=== PATIENT | female | born 1940 | race Caucasian/White ===

== ENCOUNTER 2018-02-15 14:41 | Inpatient (IN) | payer OTHER ==
[~2018-02-15] VITALS: Ht 152.4 cm; Wt 131.5 kg
--- NOTE | ~2018-02-15 | EKG ---
[address] [address] ELECTROCARDIOGRAM REPORT Name: NEEMA THOMAS Room #: 457-P ADM IN M.R.#: [id number] Admission: 02/15/18 Attend Phys: Channing Ramesh MD Discharge: Date of : 40 Report #: [id number] THIS REPORT FOR: //name// [facility] ED Test Date: 2018-02-15 Test Time: 15:01:27 Pat Name: NEEMA THOMAS Department: Room: [facility] Gender: F [employer]: as : 1940 Requested By: Delmy Day Order Number: [id number] MD: King Del Toro Measurements Intervals [place] Rate: 97 P: 27 NC: 165 QRS: 17 QRSD: 96 T: 55 QT: 348 QTc: 442 Interpretive Statements Sinus rhythm No previous ECG available for comparison Electronically Signed On 02-16-2018 23:35:45 [facility] OPERATOR by King Del Toro [email or web address] <ELECTRONICALLY SIGNED> By: King Del Toro MD 02/16/18 [id number] 1501 1501 King Del Toro MD /CASEY
[2018-02-15 14:41] VITALS: BP 147/54
[2018-02-15 15:00] LABS: ABSOLUTE NEUTROPHILS 9.5 thou/uL (1.4-8.2); BASOPHILS 0.2 % (0.0-2.0); EOSINOPHILS 0.4 % (0.0-3.0); HEMATOCRIT 34.8 % (37.0-47.0); HEMOGLOBIN 12.1 gm/dL (12.0-15.0); LYMPHOCYTES 4.7 % (24.0-44.0); MCH 28.6 pg (26.0-34.0); MCHC 34.8 g/dL (28.0-37.0); MCV 82.2 fL (80.0-100.0); MONOCYTES 6.8 % (1.0-8.0); PLATELET COUNT 170 thou/uL (150-400); POLYS 87.9 % (36.0-66.0); RBC 4.23 mil/uL (4.20-5.00); RDW 14.9 % (10.5-14.5); WBC 10.8 thou/uL (4.0-11.0)
[2018-02-15 15:07] LABS: ANION GAP 10 mmol/L (7-16); BUN 21 mg/dL (7-18); CALCIUM 9.3 mg/dL (8.5-10.1); CHLORIDE 99 mmol/L (98-107); CO2 25 mmol/L (21-32); GLUCOSE 144 mg/dL (74-106); POTASSIUM 3.9 mmol/L (3.5-5.1); SODIUM 134 mmol/L (136-145)
[2018-02-15 15:15] LABS: ALBUMIN 3.2 g/dL (3.4-5.0); SGOT 29 U/L (15-37); SGPT 24 U/L (30-65); TOTAL PROTEIN 7.7 g/dL (6.4-8.2); TROPONIN-I <0.06 ng/mL (<0.06)
[2018-02-15] MEDS ORDERED: NORCO 5-325 TA1 EACH PO (15:35)
[2018-02-15] MEDS ORDERED: SYNTHROID125 MC1 PO (15:35)
[2018-02-15] MEDS ORDERED: VENTOLIN HFA 1818 GM INH (15:35)
[2018-02-15] MEDS ORDERED: LIPITOR10 MG PO (15:36)
[2018-02-15] MEDS ORDERED: METOPROLOL TART25 MG PO (15:36)
[2018-02-15] MEDS ORDERED: SERTRALINE HCL100 MG PO (15:36)
[2018-02-15] MEDS ORDERED: NABUMETONE 500500 M1 PO (15:36)
[2018-02-15] MEDS ORDERED: PROTONIX40 M1 PO (15:36)
[2018-02-15] MEDS ORDERED: MYRBETRIQ50 MG PO (15:37)
[2018-02-15 16:22] LABS: URINE BILIRUBIN NEGATIVE (Negative); URINE BLOOD 1+ (Negative); URINE CLARITY HAZY; URINE COLOR YELLOW; URINE GLUCOSE-RANDOM* NEGATIVE (Negative); URINE KETONES NEGATIVE (Negative); URINE LEUKOCYTES-REFLEX 2+ (Negative); URINE NITRITE-REFLEX POSITIVE (Negative); URINE PROTEIN (DIPSTICK) 2+ (Negative); URINE UROBILINOGEN 0.2 E.U./dl (0.2-1.0)
[2018-02-15 16:29] LABS: BACTERIA-REFLEX >30 Many /HPF (None Seen); CASTS None Seen /LPF (None Seen); CRYSTALS None Seen /LPF (None Seen); SQUAMOUS 0-3 Few /LPF (0-3); URINE RBC 3-10 Few /HPF (0-2); URINE WBC-REFLEX >25 Many /HPF (0-5)
[2018-02-15 17:55] VITALS: BP 140/73
[2018-02-15 17:58] VITALS: BP 140/73
[2018-02-15 20:00] VITALS: BP 138/80
[2018-02-15] MEDS ORDERED: VITAMIN D1000 UNI1 PO (23:43)
[2018-02-16 04:30] VITALS: BP 122/65
[2018-02-16 05:53] LABS: HEMATOCRIT 33.1 % (37.0-47.0); HEMOGLOBIN 10.7 gm/dL (12.0-15.0); MCHC 32.3 g/dL (28.0-37.0); MCV 83.7 fL (80.0-100.0); RBC 3.95 mil/uL (4.20-5.00); RDW 15.6 % (10.5-14.5)
[2018-02-16 06:04] LABS: CALCIUM 8.8 mg/dL (8.5-10.1); CREATININE 1.1 mg/dL (0.6-1.0); POTASSIUM 3.3 mmol/L (3.5-5.1)
[2018-02-16 08:39] VITALS: BP 134/85
[2018-02-16 17:04] VITALS: BP 132/76
[2018-02-16 19:22] VITALS: BP 140/83
[2018-02-17 04:47] VITALS: BP 153/88
[2018-02-17 07:45] VITALS: BP 159/76
[2018-02-17] MEDS ORDERED: KEFLEX500 M1 PO (11:38)
[2018-02-17 14:50] VITALS: BP 159/76
[2018-02-17 15:36] VITALS: BP 159/76
== END 2018-02-17 16:40 | disposition home or self-care (01) | DRG 689 ==
LOC: ER 14:41 → EROBS 17:10 → 4W 17:10 → ENTRNSPT 02-17 15:04 → EDTRNSPTSTS 02-17 15:06 → 4W 02-17 16:40
PROVIDERS: Hospitalist; Student in an Organized Health Care Education/Training Program
DX: N39.0 Urinary tract infection, site not specified (principal); E43 Unspecified severe protein-calorie malnutrition; M06.9 Rheumatoid arthritis, unspecified; E78.5 Hyperlipidemia, unspecified; N39.3 Stress incontinence (female) (male); N32.81 Overactive bladder; M19.90 Unspecified osteoarthritis, unspecified site; N18.3 Chronic kidney disease, stage 3 (moderate); I12.9 Hypertensive chronic kidney disease with stage 1 through stage 4 chronic kidney disease, or unspecified chronic kidney disease; K21.9 Gastro-esophageal reflux disease without esophagitis; Z23 Encounter for immunization; Z88.6 Allergy status to analgesic agent; Z88.2 Allergy status to sulfonamides; Z88.8 Allergy status to other drugs, medicaments and biological substances
CPT/HCPCS: 10040

== ENCOUNTER → 2018-09-10 | Outpatient (CLI) | payer OTHER ==
[~2018-09-10] MED LIST: KEFLEX500 M1 PO; LIPITOR10 MG PO; METOPROLOL TART25 MG PO; MYRBETRIQ50 MG PO; NABUMETONE 500500 M1 PO; NORCO 5-325 TA1 EACH PO; PROTONIX40 M1 PO; SERTRALINE HCL100 MG PO; SYNTHROID125 MC1 PO; VENTOLIN HFA 1818 GM INH; VITAMIN D1000 UNI1 PO
== END ==
LOC: RAD 12:23
DX: M40.294 Other kyphosis, thoracic region (principal); M19.012 Primary osteoarthritis, left shoulder; M19.011 Primary osteoarthritis, right shoulder; Z88.5 Allergy status to narcotic agent; Z91.040 Latex allergy status; Z88.2 Allergy status to sulfonamides

== ENCOUNTER → 2019-09-02 | Outpatient (CLI) | payer OTHER | LOC: RAD 13:04 | PROVIDERS: ATTEND Internal Medicine Pulmonary Disease | DX: J45.30 Mild persistent asthma, uncomplicated (principal); M25.78 Osteophyte, vertebrae; M19.012 Primary osteoarthritis, left shoulder; M19.011 Primary osteoarthritis, right shoulder ==

== ENCOUNTER → 2019-09-16 | Outpatient (CLI) | payer OTHER | LOC: SJCVC 11:53 | PROVIDERS: ATTEND Internal Medicine | DX: I10 Essential (primary) hypertension (principal); I65.23 Occlusion and stenosis of bilateral carotid arteries; E78.5 Hyperlipidemia, unspecified; K21.9 Gastro-esophageal reflux disease without esophagitis; I25.10 Atherosclerotic heart disease of native coronary artery without angina pectoris; E03.9 Hypothyroidism, unspecified; M19.90 Unspecified osteoarthritis, unspecified site; G47.30 Sleep apnea, unspecified; Z90.710 Acquired absence of both cervix and uterus; Z96.653 Presence of artificial knee joint, bilateral; Z82.49 Family history of ischemic heart disease and other diseases of the circulatory system; Z87.891 Personal history of nicotine dependence; Z72.89 Other problems related to lifestyle; Z79.899 Other long term (current) drug therapy ==

== ENCOUNTER → 2020-03-16 | Outpatient (CLI) | payer OTHER | LOC: SJCVC 13:02 | PROVIDERS: ATTEND Internal Medicine | DX: K21.9 Gastro-esophageal reflux disease without esophagitis (principal); I10 Essential (primary) hypertension; R60.9 Edema, unspecified; I65.23 Occlusion and stenosis of bilateral carotid arteries; E78.5 Hyperlipidemia, unspecified; J45.909 Unspecified asthma, uncomplicated; I25.10 Atherosclerotic heart disease of native coronary artery without angina pectoris; M19.90 Unspecified osteoarthritis, unspecified site; F32.9 Major depressive disorder, single episode, unspecified; Z79.82 Long term (current) use of aspirin; Z79.899 Other long term (current) drug therapy; Z87.891 Personal history of nicotine dependence; Z72.89 Other problems related to lifestyle; Z88.2 Allergy status to sulfonamides; Z88.5 Allergy status to narcotic agent; Z88.8 Allergy status to other drugs, medicaments and biological substances; Z91.040 Latex allergy status ==

== ENCOUNTER 2020-09-24 12:32 | Emergency (ER) | payer OTHER ==
[~2020-09-24] VITALS: Ht 180.3 cm; Wt 120.7 kg
[2020-09-24 14:35] VITALS: BP 128/58
== END 2020-09-24 14:35 | disposition home or self-care (01) ==
LOC: ER 12:32
DX: L03.116 Cellulitis of left lower limb (principal); M06.9 Rheumatoid arthritis, unspecified; I10 Essential (primary) hypertension; E78.5 Hyperlipidemia, unspecified; J45.909 Unspecified asthma, uncomplicated; Z90.710 Acquired absence of both cervix and uterus; Z96.653 Presence of artificial knee joint, bilateral; Z79.891 Long term (current) use of opiate analgesic; Z88.2 Allergy status to sulfonamides; Z88.5 Allergy status to narcotic agent; Z88.8 Allergy status to other drugs, medicaments and biological substances; Z72.89 Other problems related to lifestyle

== ENCOUNTER → 2020-10-20 | Outpatient (CLI) | payer OTHER | LOC: SJCVCIMAG 08:35 | PROVIDERS: ATTEND Internal Medicine | DX: I35.8 Other nonrheumatic aortic valve disorders (principal); I10 Essential (primary) hypertension; E78.5 Hyperlipidemia, unspecified; I65.23 Occlusion and stenosis of bilateral carotid arteries; K21.9 Gastro-esophageal reflux disease without esophagitis; J45.909 Unspecified asthma, uncomplicated; M19.90 Unspecified osteoarthritis, unspecified site; M06.9 Rheumatoid arthritis, unspecified; G47.30 Sleep apnea, unspecified; I25.10 Atherosclerotic heart disease of native coronary artery without angina pectoris; Z90.710 Acquired absence of both cervix and uterus; Z88.2 Allergy status to sulfonamides; Z88.5 Allergy status to narcotic agent; Z88.8 Allergy status to other drugs, medicaments and biological substances; Z79.82 Long term (current) use of aspirin; Z79.899 Other long term (current) drug therapy; Z87.891 Personal history of nicotine dependence; Z82.49 Family history of ischemic heart disease and other diseases of the circulatory system ==